=== PATIENT | female | born 1980 | race Caucasian/White ===

== ENCOUNTER 2016-05-23 19:48 | Emergency (ER) | payer OTHER ==
[~2016-05-23 19:48] MED LIST: ADVAIR 1001 DISK W/D PO; ALBUTEROL17 GM INH; ALLEGRA PO; ATENOLOL PO; DOXYCYCLINE PO; FLEXERIL PO; HCTZ PO; LORTAB 7.5-5001 TAB PO; NICOTINE T1 PATCH .2 TOP; PAXIL PO; SINGULAIR PO
== END 2016-05-23 19:53 | disposition home or self-care (01) ==
LOC: CFTX 19:48
DX: L30.9 Dermatitis, unspecified (principal); I10 Essential (primary) hypertension; J45.909 Unspecified asthma, uncomplicated; Z90.49 Acquired absence of other specified parts of digestive tract; F17.210 Nicotine dependence, cigarettes, uncomplicated
CPT/HCPCS: 96372; 99282; 99283; J1200

== ENCOUNTER 2016-09-27 19:21 | Emergency (ER) | payer OTHER ==
[~2016-09-27] VITALS: Ht 180.3 cm; Wt 170.1 kg
--- NOTE | ~2016-09-27 | CT4 ---
[facility] A Service of [facility] & [facility] RADIOLOGY TEXT RESULTS PATIENT: TRENTON SILVA LOCATION: [facility] : 80 UNIT #: [id number] AGE: [address]: Jose Banegas MD SEX: F ORDER DR: [id number] [facility] [address] [place], [place] [address] [id number] E MR#: [id number] Acc #: [id number] NAME: TRENTON SILVA : 1980 SEX: F STUDY DATE/TIME: 09/27/2016 20:53 UNIT: [facility] ROOM: STUDY DESCRIPTION: CT Abd and Pelv Wo Cont Attending Physician: Jose Banegas M.D. Ordering Physician: Jose Banegas M.D. Primary Care Physician: Primary Care Physician No MEDICAL IMAGING REPORT This report is preliminary unless electronic signature is present EXAM CT abdomen and pelvis, 09/27/2016 HISTORY Vomiting and diarrhea 4 days. Right side pain. Asthma, hypertension, tonsillectomy gallbladder. This CT exam was performed with one or more of the following radiation dose reduction techniques: automatic exposure control, adjustment of mA and/or kV according to patient size, and iterative reconstruction. FINDINGS CT abdomen and pelvis performed without administration of oral or intravenous contrast. Comparison 11/08/2008. Study degraded by artifact related to the patient's morbid obesity. Minimal dependent atelectasis at the lung bases. Inferior heart and pericardium unremarkable. Liver mildly enlarged at 18.4 cm in craniocaudal extent. No focal hepatic parenchymal abnormality is seen. Status post cholecystectomy. No biliary obstruction. Spleen enlarged at about 14.4 cm in craniocaudal extent. No focal parenchymal abnormality. Pancreas, adrenal glands unremarkable. No hydronephrosis or nephrolithiasis. No perinephric inflammatory change. No ureteral calculi or secondary signs of recent stone passage. CT PELVIS: No inguinal adenopathy. Urinary bladder unremarkable. Uterus and adnexal structures unremarkable. No free fluid in pelvis. No pelvic or retroperitoneal adenopathy. A vopjr-ug-tddgiuof hiatal hernia, more pronounced than on prior study. Remainder of visualized esophagus and stomach unremarkable. Small bowel and appendix unremarkable. Small lymph nodes in the ileocecal mesentery unchanged. Colon unremarkable. Vascular structures unremarkable. Bony structures show no acute abnormality. [facility]. [facility] A Service of [facility] RADIOLOGY TEXT RESULTS PATIENT: TRENTON SILVA LOCATION: [facility] : 80 UNIT #: [id number] AGE: [address]: Jose Banegas MD SEX: F ORDER DR: IMPRESSION 1. No acute abnormality is seen in the abdomen or pelvis. Study is somewhat degraded secondary to the patient's morbid obesity. There is a xyqrr-fp-fnuhehcu hiatal hernia more pronounced than in 2009. Remainder of the alimentary canal including appendix unremarkable. 2. Post cholecystectomy. No biliary obstruction. 3. Mild hepatosplenomegaly without focal parenchymal abnormality seen. 4. Kidneys, ureters, urinary bladder unremarkable. 5. No fluid collections. No free air. Dictated by... Judah Hackett M.D. THIS IS AN ELECTRONICALLY VERIFIED REPORT Judah Hackett M.D. at 09/28/2016 3:16 PM KARLA/aster TD: 09/28/2016 04:08 JOB #: [id number] MEDICAL IMAGING REPORT Page 1 of 1 COPY
[2016-09-27 20:09] LABS: URINE SOURCE CLEAN CATCH
[2016-09-27 20:13] LABS: URINE APPEARANCE CLEAR; URINE BILIRUBIN NEG (NEG); URINE BLOOD NEG (NEG); URINE COLOR YELLOW; URINE GLUCOSE NEG (NEG); URINE KETONE NEG (NEG); URINE LEUKOCYTE ESTERASE 1+ (NEG); URINE NITRATE NEG (NEG); URINE PROTEIN NEG (NEG); URINE SPECIFIC GRAVITY 1.024 (1.003-1.035); URINE UROBILINOGEN 0.2 MG/DL (NEG)
[2016-09-27 20:16] LABS: CULTURE INDICATED? YES; URBCS1 AUWI 0-2 /[HPF] (0-2); URINE BACTERIA AUWI 1+ (NEGATIVE); URINE SQUAMOUS EPITHELIAL CELL OCC /[HPF]
[2016-09-27 20:18] LABS: BASOPHIL# 0.1 X10e3 (0-0.3); BASOPHIL% 0.8 % (0-2.5); EOSINOPHIL# 0.3 X10e3 (0-0.7); EOSINOPHIL% 3.2 % (0.0-7.0); HEMATOCRIT 36.8 % (35.0-45.0); LYMPHOCYTE# 1.6 X10e3 (1.0-3.5); LYMPHOCYTE% 17.2 % (17.0-45.0); MEAN CELL VOLUME 64.2 FL (83-96); MEAN CORPUSCULAR HEMOGLOBIN 19.3 PG (28-34); MEAN PLATELET VOLUME 8.6 FL (6.5-11.5); MONOCYTE# 0.8 X10e3 (0-1.0); NEUTROPHIL# 6.5 X10e3 (1.5-7.1); NEUTROPHIL% 69.8 % (40-75); PLATELET COUNT 423 X10e3 (140-420); RED BLOOD COUNT 5.73 X10e (3.90-5.30); RED CELL DISTRIBUTION WIDTH 17.3 % (11.0-15.5); WHITE BLOOD COUNT 9.4 X10e3 (4.0-10.5)
[2016-09-27 20:20] LABS: DIFF IND YES
[2016-09-27 20:39] LABS: ALBUMIN SERUM 3.7 g/dL (3.5-5.0); BILIRUBIN, DIRECT 0.1 mg/dL (0.0-0.2); BILIRUBIN,INDIRECT 0.3 mg/dL (0.0-0.9); BILIRUBIN,TOTAL 0.4 mg/dL (0.2-2.0); CALCIUM SERUM 8.8 mg/dL (8.4-10.2); GLOM FILT RATE Estimated 72.5 mL/min (>60); POTASSIUM 3.3 mmol/L (3.5-5.1); PROTEIN TOTAL SERUM 6.7 g/dL (6.0-8.3)
[2016-09-27 20:42] LABS: ANISOCYTOSIS SL; HYPOCHROMIA MOD; MICROCYTOSIS MOD; PLATELET ESTIMATE INCREASED (NORMAL)
== END 2016-09-27 22:31 | disposition home or self-care (01) ==
LOC: CED 19:21
PROVIDERS: Emergency Medicine
DX: A08.4 Viral intestinal infection, unspecified (principal); Z90.49 Acquired absence of other specified parts of digestive tract; F17.200 Nicotine dependence, unspecified, uncomplicated; Z88.2 Allergy status to sulfonamides; Z88.8 Allergy status to other drugs, medicaments and biological substances
CPT/HCPCS: 36415; 74176; 80048; 80076; 81003; 83690; 84703; 85025; 87086; 96361; 96374; 99284; J2405